=== PATIENT | female | born 1945 | race Two or more races ===

== ENCOUNTER 2018-03-12 15:42 | Outpatient (CLI) | payer OTHER | END 2018-03-12 15:53 | disposition home or self-care (01) | LOC: MAMO-SONO 15:42 | DX: Z12.31 Encounter for screening mammogram for malignant neoplasm of breast (principal); Z87.898 Personal history of other specified conditions; R92.0 Mammographic microcalcification found on diagnostic imaging of breast ==

== ENCOUNTER 2018-08-29 09:09 | Outpatient (CLI) | payer OTHER | END 2018-08-29 09:22 | disposition home or self-care (01) | LOC: RAD 501 09:09 | DX: M65.842 Other synovitis and tenosynovitis, left hand (principal) ==

== ENCOUNTER 2019-04-10 13:42 | Outpatient (CLI) | payer OTHER | END 2019-04-10 14:02 | disposition home or self-care (01) | LOC: SONOGRAMA 13:42 | DX: S63.502A Unspecified sprain of left wrist, initial encounter (principal) ==

== ENCOUNTER 2019-07-26 11:32 | Outpatient (CLI) | payer OTHER | END 2019-07-26 12:02 | disposition home or self-care (01) | LOC: MAMO-SONO 11:32 | DX: Z12.31 Encounter for screening mammogram for malignant neoplasm of breast (principal); Z87.898 Personal history of other specified conditions; R92.0 Mammographic microcalcification found on diagnostic imaging of breast ==

== ENCOUNTER 2020-08-24 12:25 | Outpatient (CLI) | payer OTHER | END 2020-08-24 16:26 | disposition home or self-care (01) | LOC: MAMO-SONO 12:25 | PROVIDERS: ATTEND Specialist | DX: N60.01 Solitary cyst of right breast (principal); R92.1 Mammographic calcification found on diagnostic imaging of breast; Z12.31 Encounter for screening mammogram for malignant neoplasm of breast ==

== ENCOUNTER → 2020-09-26 10:06 | Outpatient (CLI) | payer OTHER | END | disposition home or self-care (01) | LOC: PPH VACUNA 10:06 | PROVIDERS: ATTEND Emergency Medicine Pediatric Emergency Medicine | DX: Z23 Encounter for immunization (principal) ==

== ENCOUNTER 2020-10-17 08:22 | Outpatient (CLI) | payer OTHER | END 2020-10-17 12:00 | disposition home or self-care (01) | LOC: PPH VACUNA 08:22 | PROVIDERS: ATTEND Emergency Medicine Pediatric Emergency Medicine | DX: Z23 Encounter for immunization (principal) ==